=== PATIENT | female | born 1960 | race Caucasian/White ===

== ENCOUNTER → 2017-04-04 | Outpatient (CLI) | payer OTHER ==
[2017-04-04 18:20] LABS: BASO % 0.6 %; BASO ABS # 0.04 K/uL (0-0.2); COMPLETE YES; EOS % 2.5 %; HEMATOCRIT 44.6 % (37-47); LYMPH % 19.3 %; LYMPH ABS # 1.29 K/uL (1.2-3.4); MEAN CELL VOLUME 92.3 fL (80-100); MEAN CORPUSCULAR HGB CONC 32.5 g/dl (32-36); MEAN PLATELET VOLUME 10.2 fL (7.4-10.4); MONO % 7.2 %; NEUT % 70.4 %; PLATELET COUNT 222 K/uL (130-400); RED BLOOD COUNT 4.83 M/uL (4.2-5.4); WHITE BLOOD COUNT 6.68 K/uL (4.8-10.8)
[2017-04-04 18:35] LABS: ALT/SGPT 22 U/L (12-78); AST/SGOT 22 U/L (15-37); BLOOD UREA NITROGEN 10 mg/dl (7-18); BUN/CREATININE RATIO 12.3 (10-20); CALCIUM 8.6 mg/dl (8.5-10.1); CARBON DIOXIDE 30 mmol/L (21-32); CHLORIDE 108 mmol/L (98-107); CHOLESTEROL 190 mg/dl (0-200); CREATININE 0.78 mg/dl (0.60-1.20); GLUCOSE 89 mg/dl (70-99); POTASSIUM 4.2 mmol/L (3.5-5.1); SODIUM 143 mmol/L (136-145)
[2017-04-04 18:43] LABS: ALB/GLOB RATIO 1.3 (0.9-2); ALKALINE PHOSPHATASE 47 U/L (45-117); CHOLESTEROL/HDL RATIO 3.8; HDL CHOLESTEROL 50 mg/dl; LDL CHOLESTEROL CALCULATED 115 mg/dl; THYROID STIMULATING HORMONE 0.802 uIu/ml (0.300-4.500); TRIGLYCERIDES 123 mg/dl (0-150); VERY LOW DENSITY LIPOPROT CALC 25 mg/dl
== END | disposition home or self-care (01) ==
LOC: C.LABSPEC 14:07
PROVIDERS: ATTEND Family Medicine
DX: E03.9 Hypothyroidism, unspecified (principal)

== ENCOUNTER → 2017-09-19 | Outpatient (CLI) | payer OTHER ==
[~2017-09-19] MED LIST: GADAVIST IV PRN
--- NOTE | 2017-09-19 13:10 | DIAGNOSTIC IMAGING REPORT ---
MRI CERVICAL SPINE COMBO CLINICAL HISTORY: G35 Multiple sclerosis, M48.02 cervical spinal stenosis, numbness and tingling of the left arm and leg. Spasms. TECHNIQUE: Sagittal and axial T1, T2 and STIR images were obtained. Imaging was obtained before and after the administration of 9 cc of intravenous Gadavist. COMPARISON STUDY: No previous studies for comparison. The study is compromised due to patient motion. Multiple sequences were repeated. There are no suspicious areas of marrow replacement. No intrinsic cervical cord lesions are visualized. C2-3: There is no evidence of disc bulge or focal herniation. There is no spinal or foraminal stenosis. C3-4: There is no evidence of disc bulge or focal herniation. There is no spinal or foraminal stenosis. C4-5: There is a mild circumferential disc bulge. There is minor triangular narrowing of the spinal canal. There is no significant foraminal stenosis C5-6 :There is a mild circumferential disc bulge. There is minimal spinal canal narrowing. There is no significant foraminal stenosis C6-7: There is a mild circumferential disc bulge. There is no significant spinal or foraminal stenosis C7-T1: There is no evidence of disc bulge or focal herniation. There is no evidence of spinal or foraminal stenosis. Postcontrast images reveal no pathologically enhancing lesions. IMPRESSION: 1. Technically limited study secondary to motion artifact 2. No cord lesions identified 3. Mild multilevel spondylitic changes with very mild spinal canal narrowing at the C4-5 and C5-6 levels. Electronically signed by: Yves Ferrell M.D. 09/19/2017 1:08 PM Dictated Date/Time: 09/19/2017 12:48 PM
--- NOTE | 2017-09-19 13:25 | DIAGNOSTIC IMAGING REPORT ---
THORACIC SPINE COMBO CLINICAL HISTORY: 56 years-old Female presenting with G35 Multiple [id number] Urinary [id number] Leg numbness, tingling and numbness in the left arm and leg. TECHNIQUE: Multisequence, multiplanar MR imaging of the thoracic spine was performed before and after the administration of intravenous contrast. IV contrast: 9 mL of Gadavist. COMPARISON: None. FINDINGS: Localizer images: Unremarkable. The purposes of reporting, the spinal levels have been labeled on the images. Normal thoracic kyphosis. Vertebral bodies maintain normal height, alignment, and bone marrow signal intensity. Intervertebral disc heights are essentially preserved although multilevel disc osteophyte complexes noted from T6-7 through the thoracolumbar junction. Mild effacement of the ventral thecal sac greatest at T6-7 and T7-8. No contouring of the spinal cord. No significant neural foraminal narrowing. Thoracic spinal cord maintains normal morphology and signal intensity throughout. No abnormal enhancement on postcontrast imaging. Paraspinal soft tissues within normal limits. IMPRESSION: 1. No abnormal spinal cord signal intensity to suggest involvement of demyelinating disease. 2. Multilevel degenerative changes with disc osteophyte complexes in the lower thoracic spine. No significant neural foraminal or spinal canal narrowing. Electronically signed by: Evans Mcneil M.D. 09/19/2017 1:23 PM Dictated Date/Time: 09/19/2017 1:15 PM
== END | disposition home or self-care (01) ==
LOC: C.MRI 10:11
PROVIDERS: ATTEND Psychiatry & Neurology Neurology
DX: G35 Multiple sclerosis (principal); M48.02 Spinal stenosis, cervical region; R20.0 Anesthesia of skin; M47.892 Other spondylosis, cervical region; M89.8X8 Other specified disorders of bone, other site; M25.78 Osteophyte, vertebrae

== ENCOUNTER → 2017-10-31 | Outpatient (CLI) | payer OTHER ==
[2017-10-31 18:40] LABS: THYROID STIMULATING HORMONE 0.451 uIu/ml (0.300-4.500)
== END | disposition home or self-care (01) ==
LOC: C.LABSPEC 17:39
PROVIDERS: ATTEND Family Medicine
DX: E03.9 Hypothyroidism, unspecified (principal)

== ENCOUNTER 2018-01-23 13:38 | Emergency (ER) | payer OTHER ==
[~2018-01-23] VITALS: Ht 152.4 cm; Wt 94.6 kg
[2018-01-23 13:40] VITALS: TEMP 36.4; Ht 152.4 cm; Wt 94.6 kg
[2018-01-23] MEDS ORDERED: DEXAMETHASONE **PF** INJ 10 MG/ML VIAL IM STA (14:10)
[2018-01-23] MEDS ORDERED: HYDROmorphone INJ 1 MG/ML SYR IM STA (14:10)
[2018-01-23] MEDS ORDERED: ONDANSETRON 4MG OD TAB PO STA (14:10)
[2018-01-23] MEDS ORDERED: HYDR-4079 PO (14:43)
[2018-01-23] MEDS ORDERED: CHOL1TAB42 PO (14:43)
[2018-01-23] MEDS ORDERED: PREG75CA PO (14:43)
[2018-01-23] MEDS ORDERED: MODA1TAB PO (14:43)
[2018-01-23] MEDS ORDERED: DTR/5 PO (14:43)
[2018-01-23] MEDS ORDERED: ETOD500T95 PO (14:43)
[2018-01-23] MEDS ORDERED: TRAZ50TA35 PO (14:43)
[2018-01-23] MEDS ORDERED: ATV/1 PO (14:43)
[2018-01-23] MEDS ORDERED: LEVO88TA3 PO (14:43)
[2018-01-23] MEDS ORDERED: MULT-506 PO (14:43)
[2018-01-23] MEDS ORDERED: PSYL58.636 PO (14:43)
[2018-01-23] MEDS ORDERED: DIME1CAP2 PO (14:43)
[2018-01-23] MEDS ORDERED: B-COTAB18 PO (14:43)
[2018-01-23] MEDS ORDERED: ASPI325T39 PO (14:43)
[2018-01-23] MEDS ORDERED: PREG1CAP28 PO (14:43)
[2018-01-23] MEDS ORDERED: METH500T37 PO (14:43)
[2018-01-23] MEDS ORDERED: OMEP40CA41 PO (14:43)
--- NOTE | 2018-01-23 14:44 | EMERGENCY ROOM VISIT NOTE ---
ED Visit Note First contact with patient: 13:51 CHIEF COMPLAINT: "Severe back and leg pain". HISTORY OF PRESENT ILLNESS: This is a 57-year-old female patient presents to the emergency department via private vehicle accompanied by male complaining of pain in the low back which began years ago, but significantly worsened over the past 2 weeks. The pain was gradual in onset, is now constant and worse with movement. The patient notes the pain as sharp and a 9/10. The patient has taken Vicodin as prescribed without relief of the pain. The patient denies any loss of control of their bowel function however notes chronic bladder issues which stems from her underlying multiple sclerosis which was diagnosed in 2003. There has been no leg numbness or weakness, rather just a tingling sensation in the left leg. No nausea or vomiting or abdominal pain. No chest pain or shortness of breath. The patient has now had prior back injuries rather just underlying low back pain. REVIEW OF SYSTEMS: A review of systems was performed with positives and pertinent negatives listed in the history of present illness. All other systems were reviewed and are negative. ALLERGIES: Penicillin MEDICATIONS: As noted below PMH: Multiple sclerosis and low back issues SOCIAL HISTORY: Patient lives locally. PHYSICAL EXAM: VITALS: Vitals are noted on the nurse's note and reviewed by myself. Vital signs stable. She is hypertensive I believe secondary to situation. GENERAL: 57-year-old female, in no acute distress, nondiaphoretic, well- developed well-nourished. SKIN: The skin was without rashes, erythema, edema, or bruising. NECK: Supple without nuchal rigidity. No cervical spine tenderness. No paraspinous muscle tenderness. HEART: Regular rate and rhythm without murmurs gallops or rubs. LUNGS: Clear to auscultation bilaterally without wheezes, rales or rhonchi. ABDOMEN: Positive bowel sounds x 4. Normal tympanic percussion. Soft, nontender, without masses or organomegaly. Cross sign negative. MUSCULOSKELETAL: No muscle atrophy, erythema, or edema noted of the back. There is positive tenderness over the lumbar para spinous musculature and minimally overlying the processes of the lumbar/superior sacral region. There is no tenderness over the thoracic spine or paraspinous muscles. There are no muscle spasms present. The patient is slow to move around with maximum tenderness with low back. NEURO: Patient was alert and oriented. Normal sensation to light touch. Deep tendon reflexes 2+ in the lower extremities. Strength 5/5 and equal in the bilateral lower extremities. EMERGENCY DEPARTMENT COURSE: Patient was seen and evaluated as above. She presents to us today with low back pain. She notes this is the same low back pain which she follows with pain management for it is just worsened. No evidence of cauda equina syndrome on exam. She is nontoxic. She is afebrile. I suspect the hypertension is likely secondary to her pain. She had he takes Vicodin. [place] drug monitoring system was reviewed and shows an active prescription for Vicodin. Patient was honest about this. While here she was given Dilaudid IM, Zofran for nausea as well as Decadron for her radicular symptoms. She was reevaluated and feeling better. She appears stable for outpatient management. She notes she did have an MRI lumbar spine in the recent past. 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 No emergent processes are suspected. She is to call her family doctor/pain management to schedule follow-up or return with worsening. She was educated upon management, educated upon worrisome symptoms which to return, had questions in spite of discharge, and was discharged home in good condition. In the evaluation and treatment of this patient the following differential diagnoses were obtained: Lumbar strain, sprain, fracture, dislocation, subluxation, cauda equina syndrome, abscess, UTI, among others. Current/Historical Medications Scheduled Aspirin (Aspirin Ec), 325 MG PO DAILY B-Complex Vitamins (Vitamin B Complex), 1 CAP PO DAILY Cholecalciferol (Vitamin D), 5,000 UNITS PO DAILY Dimethyl Fumarate (Tecfidera), 240 MG PO BID Etodolac (Etodolac), 500 MG PO BID Levothyroxine Sodium (Levothyroxine Sodium), 88 MCG PO DAILY Lorazepam (Ativan), 1 MG PO TID Methocarbamol (Robaxin), 500 MG PO TID Methylprednisolone (Medrol Dosepak), 0 PO DAILY Modafinil (Provigil), 200 MG PO DAILY Multivitamin (Multivitamin), 1 TAB PO DAILY Omeprazole (Prilosec), 40 MG PO DAILY Oxybutynin Chloride (Ditropan), 5 MG PO BID Pregabalin (Lyrica), 75 MG PO QAM Pregabalin (Lyrica), 150 MG PO DAILY Psyllium (Metamucil Fiber), 1 PKT PO DAILY Trazodone Hcl (Trazodone), 75 MG PO HS Scheduled PRN Hydrocodone/Acetaminophen 10MG/325MG ([place] 10MG/325MG), 1 TAB PO TID PRN for Pain Allergies Coded Allergies: Penicillins (Unverified Adverse Reaction, Severe, TROUBLE BREATHING, ) Vital Signs Date Time Temp Pulse Resp B/P (MAP) Pulse Ox O2 Delivery O2 Flow Rate FiO2 01/23/18 14:59 73 161/106 94 01/23/18 13:40 36.4 97 16 182/104 96 Room Air Medications Administered Medications (Trade) Dose Ordered Sig/Nicola Route Start Time Stop Time Status Last Admin Dose Admin Hydromorphone HCl (Dilaudid Inj) 1 mg NOW STAT IM 01/23/18 14:10 01/23/18 14:11 DC 01/23/18 14:25 1 MG Ondansetron HCl (Zofran Odt) 4 mg NOW STAT PO 01/23/18 14:10 01/23/18 14:11 DC 01/23/18 14:21 4 MG Dexamethasone Sodium Phosphate (Dexamethasone Inj Pf) 10 mg NOW STAT IM 01/23/18 14:10 01/23/18 14:11 DC 01/23/18 14:24 10 MG Departure Information Impression Primary Impression: Low back pain Dispostion Home / Self-Care Condition GOOD Prescriptions Methylprednisolone (MEDROL DOSEPAK) 4 Mg Salvador 0 PO DAILY, #1 PKT Prov: Tai Whiteside PA-C 01/23/18 Referrals [facility]usuf Roth[facility]. [facility] Patient Instructions [facility] Additional Instructions You have been treated in the Emergency Department for Back Pain. You have received pain medicine in the emergency department which impairs your ability to operate a vehicle. It is illegal for you to drive after receiving these medicines. You have been prescribed a Medrol Dosepak. Take this medication as prescribed. You should take the COMPLETE 6-day course of this medication. This is an anti- inflammatory medicine that will help to minimize your symptoms. Because you received an injection of a steroid here, I do recommend starting this tomorrow afternoon around 3 PM. If this is an acute injury, ice can be applied to the area of pain for the first 3 days to help decrease pain and inflammation. After the first 3 days, a heating pad can be used over the area for continued soothing relief. You should schedule a follow-up appointment in 2-3 days with your Primary Care Provider for further evaluation and treatment of your back pain. Return to the Emergency Department if your current symptoms worsen despite treatment course outlined above, or if you develop any of the following symptoms : intractable pain despite aforementioned treatment course, loss of control of your bowel or bladder, numbness or tingling in your groin, or development of a fever.
[2018-01-23] MEDS ORDERED: METH4PAK PO (14:46)
[2018-01-23 14:59] VITALS: BP 161/106; PULSE 73; O2SAT 94
== END 2018-01-23 14:59 | disposition home or self-care (01) ==
LOC: C.EDB 13:40 → C.EDD 14:59
DX: M54.5 Low back pain (principal); G35 Multiple sclerosis; Z79.82 Long term (current) use of aspirin; Z79.899 Other long term (current) drug therapy; Z88.0 Allergy status to penicillin

== ENCOUNTER → 2018-03-11 | Outpatient (CLI) | payer OTHER ==
[~2018-03-11] MED LIST changes: +ASPI325T39 PO; +ATV/1 PO; +B-COTAB18 PO; +CHOL1TAB42 PO; +DIME1CAP2 PO; +DTR/5 PO; +ETOD500T95 PO; -GADAVIST IV PRN; +HYDR-4079 PO; +LEVO88TA3 PO; +METH500T37 PO; +MODA1TAB PO; +MULT-506 PO; +OMEP40CA41 PO; +PREG1CAP28 PO; +PREG75CA PO; +PSYL58.636 PO; +TRAZ50TA35 PO
[2018-03-11 14:00] LABS: BASO % 0.2 %; BASO ABS # 0.02 K/uL (0-0.2); EOS % 1.6 %; EOS ABS # 0.16 K/uL (0-0.5); HEMOGLOBIN 14.9 g/dL (12.0-16.0); IG# 0.04 K/uL (0.00-0.02); LYMPH % 7.9 %; LYMPH ABS # 0.78 K/uL (1.2-3.4); MEAN CELL VOLUME 92.6 fL (80-100); MEAN CORPUSCULAR HEMOGLOBIN 31.4 pg (25-34); MEAN CORPUSCULAR HGB CONC 33.9 g/dl (32-36); MEAN PLATELET VOLUME 10.5 fL (7.4-10.4); MONO % 8.4 %; MONO ABS # 0.83 K/uL (0.11-0.59); NEUT % 81.5 %; NEUT ABS # 8.06 K/uL (1.4-6.5); PLATELET COUNT 197 K/uL (130-400); RED CELL DISTRIBUTION WIDTH CV 13.6 % (11.5-14.5); RED CELL DISTRIBUTION WIDTH SD 46.4 fL (36.4-46.3); WHITE BLOOD COUNT 9.89 K/uL (4.8-10.8)
[2018-03-11 14:57] LABS: ALBUMIN 3.5 gm/dl (3.4-5.0); ALKALINE PHOSPHATASE 59 U/L (45-117); ALT/SGPT 19 U/L (12-78); AST/SGOT 14 U/L (15-37); BLOOD UREA NITROGEN 13 mg/dl (7-18); CALCIUM 8.2 mg/dl (8.5-10.1); CARBON DIOXIDE 30 mmol/L (21-32); CREATININE 0.74 mg/dl (0.60-1.20); GLUCOSE 105 mg/dl (70-99); POTASSIUM 3.7 mmol/L (3.5-5.1); SODIUM 139 mmol/L (136-145); TOTAL PROTEIN 6.9 gm/dl (6.4-8.2)
== END | disposition home or self-care (01) ==
LOC: C.LABBC 11:30
PROVIDERS: ATTEND Psychiatry & Neurology Neurology
DX: G35 Multiple sclerosis (principal); E55.9 Vitamin D deficiency, unspecified; E03.9 Hypothyroidism, unspecified